=== PATIENT | male | born 1960 | race African-American/Black ===

== ENCOUNTER → 2016-12-05 | Outpatient (CLI) | payer MEDICARE, OTHER ==
[~2016-12-05] MED LIST: .; ALBUTEROL17 GM INH; ALL DAY ALLERGY10 M3 PO; BLOOD PRESSURE; CARDIZEM SR PO; CIPRO PO; DILTIAZEM 24HR240 M1 PO; DILTIAZEM 24HR240 MG PO; DILTIAZEM PO; FLOMAX0.4 M1 DOB; FLOMAX0.4 M1 PO; MONTELUKAST SOD10 MG PO; OMEPRAZOLE20 M2 PO; POTASSIUM CHLO10 MEQ PO; PREDNISOLONE5 MG PO; PRILOSEC PO; PRILOSEC20 MG PO; PROCHAMBER1 EACH MC; RANITIDINE HCL300 MG PO; SINGULAIR PO; SINGULAIR4 MG PO; SPIRIVA18 MCG INH; SYMBICORT; SYMBICORT INH; XOLAIR SUBQ; XOLAIR150 MG/1.2 INJ; XOLAIR150 MG/1.2 SUBQ; ZANTAC PO; ZYRTEC PO
== END | disposition home or self-care (01) ==
LOC: CSSDAY 13:12
DX: J45.50 Severe persistent asthma, uncomplicated (principal); Z79.899 Other long term (current) drug therapy
CPT/HCPCS: J2357

== ENCOUNTER → 2016-12-19 | Outpatient (CLI) | payer MEDICARE, OTHER | END | disposition home or self-care (01) | LOC: CSSDAY 10:02 | DX: J45.50 Severe persistent asthma, uncomplicated (principal); Z79.899 Other long term (current) drug therapy | CPT/HCPCS: J2357 ==

== ENCOUNTER → 2017-01-02 | Outpatient (CLI) | payer MEDICARE, OTHER | END | disposition home or self-care (01) | LOC: CSSDAY 10:36 | DX: J45.50 Severe persistent asthma, uncomplicated (principal); Z79.899 Other long term (current) drug therapy | CPT/HCPCS: J2357 ==

== ENCOUNTER → 2017-01-16 | Outpatient (CLI) | payer MEDICARE, OTHER | END | disposition home or self-care (01) | LOC: CSSDAY 10:53 | DX: J45.50 Severe persistent asthma, uncomplicated (principal); Z79.899 Other long term (current) drug therapy | CPT/HCPCS: 96372; J2357 ==

== ENCOUNTER → 2017-01-30 | Outpatient (CLI) | payer MEDICARE, OTHER | END | disposition home or self-care (01) | LOC: CSSDAY 09:52 | DX: J45.50 Severe persistent asthma, uncomplicated (principal); Z79.899 Other long term (current) drug therapy | CPT/HCPCS: 96372; J2357 ==

== ENCOUNTER → 2017-02-13 | Outpatient (CLI) | payer MEDICARE, OTHER | END | disposition home or self-care (01) | LOC: CSSDAY 08:16 | DX: J45.50 Severe persistent asthma, uncomplicated (principal); Z79.899 Other long term (current) drug therapy | CPT/HCPCS: J2357 ==

== ENCOUNTER → 2017-02-27 | Outpatient (CLI) | payer MEDICARE, OTHER | END | disposition home or self-care (01) | LOC: CSSDAY 09:00 | DX: J45.50 Severe persistent asthma, uncomplicated (principal); Z79.899 Other long term (current) drug therapy | CPT/HCPCS: J2357 ==

== ENCOUNTER → 2017-03-13 | Outpatient (CLI) | payer MEDICARE, OTHER | END | disposition home or self-care (01) | LOC: CSSDAY 11:26 | DX: J45.50 Severe persistent asthma, uncomplicated (principal); Z79.899 Other long term (current) drug therapy | CPT/HCPCS: J2357 ==

== ENCOUNTER → 2017-03-27 | Outpatient (CLI) | payer MEDICARE, OTHER | END | disposition home or self-care (01) | LOC: CSSDAY 10:00 | DX: J45.50 Severe persistent asthma, uncomplicated (principal); Z79.899 Other long term (current) drug therapy | CPT/HCPCS: 96372; J2357 ==

== ENCOUNTER → 2017-04-09 | Outpatient (CLI) | payer MEDICARE, OTHER | END | disposition home or self-care (01) | LOC: CSSDAY 07:15 | DX: J45.50 Severe persistent asthma, uncomplicated (principal); Z79.899 Other long term (current) drug therapy | CPT/HCPCS: 96372; J2357 ==

== ENCOUNTER → 2017-04-24 | Outpatient (CLI) | payer MEDICARE, OTHER | END | disposition home or self-care (01) | LOC: CSSDAY 10:29 | DX: J45.50 Severe persistent asthma, uncomplicated (principal) | CPT/HCPCS: 96372; J2357 ==

== ENCOUNTER → 2017-05-08 | Outpatient (CLI) | payer MEDICARE, OTHER | END | disposition home or self-care (01) | LOC: CSSDAY 09:07 | DX: J45.50 Severe persistent asthma, uncomplicated (principal); Z79.899 Other long term (current) drug therapy | CPT/HCPCS: 96372; J2357 ==

== ENCOUNTER → 2017-05-22 | Outpatient (CLI) | payer MEDICARE, OTHER | END | disposition home or self-care (01) | LOC: CSSDAY 09:00 | DX: J45.50 Severe persistent asthma, uncomplicated (principal); Z79.899 Other long term (current) drug therapy | CPT/HCPCS: 96372; J2357 ==

== ENCOUNTER → 2017-06-19 | Outpatient (CLI) | payer MEDICARE, OTHER | END | disposition home or self-care (01) | LOC: CSSDAY 09:00 | DX: J45.50 Severe persistent asthma, uncomplicated (principal) | CPT/HCPCS: 96372; J2357 ==